=== PATIENT | male | born 1990 | race Caucasian/White ===

== ENCOUNTER 2021-09-23 16:06 | Emergency (ER) | payer OTHER ==
[~2021-09-23] VITALS: Ht 167.6 cm; Wt 91.0 kg
[2021-09-23] MEDS ORDERED: HYDROCODONE/ACETAMINOPHEN 5/325MG TABLET PO ONE (16:30)
[2021-09-23] MEDS ORDERED: HYDR-4001 MT (17:48)
[2021-09-23] MEDS ORDERED: LIDO1ADH5 TP (17:48)
[2021-09-23 17:57] VITALS: BP 145/65
== END 2021-09-23 18:14 | disposition home or self-care (01) ==
LOC: ER 16:06
DX: S06.9X0A Unspecified intracranial injury without loss of consciousness, initial encounter (principal); X58.XXXA Exposure to other specified factors, initial encounter; Y93.89 Activity, other specified; Y92.89 Other specified places as the place of occurrence of the external cause; Y99.8 Other external cause status; M54.50 Low back pain, unspecified
CPT/HCPCS: 72100; 99284

== ENCOUNTER 2025-04-08 12:29 | Emergency (ER) | payer SELFPAY ==
[~2025-04-08] VITALS: Ht 167.6 cm; Wt 89.0 kg
[~2025-04-08 12:29] MED LIST: HYDR-4001 MT; LIDO1ADH5 TP
[2025-04-08 12:40] VITALS: O2SAT 100
[2025-04-08 13:00] LABS: BASOPHILS % 0.8 % (0.0-2.0); EOSINOPHILS % 1.3 % (0.0-5.0); HEMATOCRIT. 42.0 % (42.0-52.0); HEMOGLOBIN. 14.4 g/dL (14.0-18.0); LYMPHOCYTES % 41.3 % (20.0-50.0); MEAN PLATELET VOLUME 9.4 fl (7.4-10.4); MONOCYTES % 5.9 % (2.0-8.0); NEUTROPHILS % 50.7 % (40.0-76.0); PLATELET 286 x1000/uL (130-400); RED BLOOD CELL COUNT 4.73 mill/uL (4.7-6.1); RED CELL DISTRIBUTION WIDTH 13.8 % (11.6-14.6)
[2025-04-08 13:12] LABS: CREATININE 1.0 mg/dL (0.6-1.3); UREA NITROGEN BLOOD 16 mg/dL (9-23)
[2025-04-08 14:38] LABS: TROPONIN I HIGH SENSITIVITY < 4 ng/L (3.0-53)
[2025-04-08] MEDS: FAMOTIDINE 20MG TABLET PO ONE (14:51)
[2025-04-08] MEDS: MAGNESIUM/ALUMINUM HYDROXIDE/SIMETHICONE 30ML UDC PO ONE (14:51)
[2025-04-08] MEDS: ASPIRIN 81MG TABLET PO ONE (14:51)
[2025-04-08 15:03] LABS: TROPONIN I HIGH SENSITIVITY < 4 ng/L (3.0-53)
[2025-04-08 15:44] VITALS: BP 118/59; PULSE 58; RESP 16; TEMP 37.1; O2SAT 98
== END 2025-04-08 15:50 | disposition home or self-care (01) ==
LOC: ER 12:29
DX: R07.89 Other chest pain (principal); Z79.899 Other long term (current) drug therapy
CPT/HCPCS: 80048; 85025; 84484; 36415; 71045; 93005; 99285; Z7610